=== PATIENT | male | born 1955 | race Two or more races ===

== ENCOUNTER 2021-06-30 06:34 | Inpatient (IN) | payer OTHER ==
[~2021-06-30] VITALS: Ht 182.9 cm; Wt 94.5 kg
[2021-06-30] MEDS ORDERED: SODIUM CHLORIDE 0.9% 1,000 ML IV ONE ×2 (06:45)
[2021-06-30 07:30] LABS: Basophils # (auto) 0.1 10 ^3/uL (0-0.2); Basophils % (auto) 0.4 % (0.0-2.0); Eosinophils # (auto) 0 10 ^3/uL (0-0.8); Eosinophils % (auto) 0.2 % (0.0-7.0); Hematocrit 31.8 % (41.0-53.0); Hemoglobin 10.8 g/dL (13.5-17.5); Lymphocytes % (auto) 15.9 % (10.0-50.0); Mean Corpuscular Hemoglobin 28.7 pg (28.0-32.0); Mean Corpuscular Hgb Conc. 33.9 g/dL (32.0-36.0); Mean Corpuscular Volume 84.7 fL (80.0-100.0); Monocytes # (auto) 0.7 10 ^3/uL (0-1.3); Monocytes % (auto) 5.5 % (0.0-12.0); Nucleated Red Blood Cells % 0.1 %; Red Blood Cells 3.75 10^6/uL (4.5-5.90); Red Cell Distribution Width 13.4 % (11.8-14.3); White Blood Cell 12.9 10^3/uL (4.4-10.8)
[2021-06-30 07:45] LABS: Potassium 4.7 mmol/L (3.5-5.1)
[2021-06-30 07:53] LABS: Albumin 3.1 g/dL (3.4-5.0); BUN/Creatinine Ratio 51.4; Bilirubin, Total 0.5 mg/dL (0.2-1.0); Calcium 7.9 mg/dL (8.5-10.1); Total Protein 5.4 g/dL (6.4-8.2)
[2021-06-30 08:05] LABS: INR 1.08 (0.9-1.15); Partial Thromboplastin Time 22.6 sec (23.6-33.0)
[2021-06-30 12:09] LABS: Urine Bacteria NONE SEEN /hpf (None Seen); Urine Blood Negative /uL (Negative); Urine Specific Gravity 1.024 (1.001-1.035); Urine WBC 2 /hpf (0 - 3)
[2021-06-30] MEDS ORDERED: PANTOPRAZOLE 40 MG/10 ML VIAL INJ IV SCH (15:00)
[2021-06-30] MEDS ORDERED: NITROGLYCERIN 0.4 MG SL TAB SL PRN ×2 (18:00→19:15)
[2021-06-30] MEDS ORDERED: MORPHINE SULFATE INJECTION 2 MG/ML SYRG IV PRN ×3 (18:00→19:15)
[2021-06-30] MEDS ORDERED: ATOR-47 PO (18:04)
[2021-06-30] MEDS ORDERED: LISI-275 PO (18:05)
[2021-06-30] MEDS ORDERED: ASPI-407 PO (18:05)
[2021-06-30] MEDS ORDERED: CYAN1TAB11 PO (18:06)
[2021-06-30] MEDS ORDERED: LABETALOL HCL 5 MG/ML 4ML SYRINGE IV ONE (18:15)
[2021-06-30] MEDS ORDERED: SODIUM CHLORIDE 0.9% 1,000 ML IV SCH (18:15)
[2021-06-30] MEDS ORDERED: ATORVASTATIN 20 MG TAB PO ONE (19:00)
[2021-06-30] MEDS ORDERED: LACTATED RINGER'S 1,000 ML IV ONE (19:00)
[2021-06-30] MEDS ORDERED: PANTOPRAZOLE 40 MG/10 ML VIAL INJ IV ONE (19:00)
[2021-06-30] MEDS ORDERED: METOPROLOL SUCCINATE XL 50 MG TAB PO ONE (19:00)
[2021-06-30] MEDS ORDERED: SUCRALFATE 1 GM/10 ML ORAL SUSP PO ONE (19:00)
[2021-06-30] MEDS: SODIUM CHLORIDE 0.9% 1,000 ML IV SCH (19:09)
[2021-06-30] MEDS ORDERED: HYDROcodone-ACET 5/325MG TAB PO PRN (19:15)
[2021-06-30] MEDS ORDERED: ALUM & MAG HYDROX-SIMETH LIQ(MAALOX) 30 ML PO PRN (19:15)
[2021-06-30] MEDS ORDERED: ISOSORBIDE MONONITRATE IR 20 MG TAB PO ONE (19:15)
[2021-06-30] MEDS ORDERED: ACETAMINOPHEN 325 MG TAB PO PRN (19:15)
[2021-06-30] MEDS ORDERED: ONDANSETRON HCL 4 MG/2 ML VIAL IV PRN (19:15)
[2021-06-30] MEDS ORDERED: LORazepam 0.5 MG TAB PO PRN (19:15)
[2021-06-30] MEDS: ATORVASTATIN 20 MG TAB PO SCH (20:21)
[2021-06-30] MEDS: SUCRALFATE 1 GM/10 ML ORAL SUSP PO SCH (20:21)
[2021-06-30 20:29] LABS: Amphetamine Screen, Urine NEGATIVE (NEGATIVE); Benzodiazephine Screen, Urine NEGATIVE (NEGATIVE); Cannabinoid Screen, Urine NEGATIVE (NEGATIVE); Cocaine Screen, Urine NEGATIVE (NEGATIVE); Opiate Scree,Urine NEGATIVE (NEGATIVE); Phencyclidine Screen, Urine NEGATIVE (NEGATIVE)
[2021-06-30 21:10] LABS: Cholesterol 65 mg/dL (< 200); HDL Cholesterol 27 mg/dL (40-59); LDL Cholesterol 35 mg/dL (< 100); Triglycerides 78 mg/dL (< 150)
[2021-06-30 21:18] LABS: Barbiturate Scree,Urine NEGATIVE (NEGATIVE)
[2021-06-30 21:24] LABS: Basophils # (auto) 0 10 ^3/uL (0-0.2); Basophils % (auto) 0.3 % (0.0-2.0); Eosinophils # (auto) 0 10 ^3/uL (0-0.8); Eosinophils % (auto) 0.3 % (0.0-7.0); Hematocrit 25.8 % (41.0-53.0); Hemoglobin 8.7 g/dL (13.5-17.5); Lymphocytes # (auto) 3.1 10 ^3/uL (0.4-5.4); Lymphocytes % (auto) 29.5 % (10.0-50.0); Mean Corpuscular Hemoglobin 28.3 pg (28.0-32.0); Mean Corpuscular Hgb Conc. 33.5 g/dL (32.0-36.0); Mean Corpuscular Volume 84.4 fL (80.0-100.0); Monocytes # (auto) 1.1 10 ^3/uL (0-1.3); Monocytes % (auto) 10.7 % (0.0-12.0); Neutrophils # (auto) 6.3 10 ^3/uL (1.6-8.6); Neutrophils % (auto) 59.2 % (37.0-80.0); Nucleated Red Blood Cells % 0.1 %; Red Blood Cells 3.06 10^6/uL (4.5-5.90); Red Cell Distribution Width 13.5 % (11.8-14.3); White Blood Cell 10.6 10^3/uL (4.4-10.8)
[2021-06-30 21:55] VITALS: BP 116/67
[2021-06-30 22:00] VITALS: BP 116/67
[2021-06-30] MEDS ORDERED: LABETALOL HCL 5 MG/ML 4ML SYRINGE IV PRN (22:00)
[2021-06-30] MEDS: metroNIDAZOLE 500MG/100ML 100 ML IV SCH (22:16)
[2021-07-01 00:27] LABS: Eosinophils # (auto) 0 10 ^3/uL (0-0.8); Lymphocytes # (auto) 3.3 10 ^3/uL (0.4-5.4); Mean Corpuscular Volume 84.3 fL (80.0-100.0); Neutrophils # (auto) 5.5 10 ^3/uL (1.6-8.6); White Blood Cell 9.7 10^3/uL (4.4-10.8)
[2021-07-01 00:29] LABS: Basophils # (auto) 0 10 ^3/uL (0-0.2); Basophils % (auto) 0.3 % (0.0-2.0); Eosinophils % (auto) 0.4 % (0.0-7.0); Hematocrit 23.9 % (41.0-53.0); Lymphocytes % (auto) 33.5 % (10.0-50.0); Mean Corpuscular Hemoglobin 28.3 pg (28.0-32.0); Mean Corpuscular Hgb Conc. 33.6 g/dL (32.0-36.0); Monocytes # (auto) 0.9 10 ^3/uL (0-1.3); Monocytes % (auto) 9.3 % (0.0-12.0); Neutrophils % (auto) 56.5 % (37.0-80.0); Red Blood Cells 2.84 10^6/uL (4.5-5.90); Red Cell Distribution Width 13.4 % (11.8-14.3)
[2021-07-01] MEDS: metroNIDAZOLE 500MG/100ML 100 ML IV SCH (06:16)
[2021-07-01] MEDS: SUCRALFATE 1 GM/10 ML ORAL SUSP PO SCH ×4 (06:39→20:14)
[2021-07-01 08:01] LABS: Basophils # (auto) 0 10 ^3/uL (0-0.2); Eosinophils # (auto) 0.1 10 ^3/uL (0-0.8); Hemoglobin 7.7 g/dL (13.5-17.5); Lymphocytes # (auto) 2.2 10 ^3/uL (0.4-5.4); Neutrophils # (auto) 5.7 10 ^3/uL (1.6-8.6); Nucleated Red Blood Cells % 0.1 %; White Blood Cell 8.7 10^3/uL (4.4-10.8)
[2021-07-01 08:02] LABS: Basophils % (auto) 0.4 % (0.0-2.0); Eosinophils % (auto) 0.6 % (0.0-7.0); Hematocrit 22.8 % (41.0-53.0); Lymphocytes % (auto) 25.8 % (10.0-50.0); Mean Corpuscular Hemoglobin 28.5 pg (28.0-32.0); Mean Corpuscular Hgb Conc. 33.8 g/dL (32.0-36.0); Mean Corpuscular Volume 84.3 fL (80.0-100.0); Monocytes # (auto) 0.6 10 ^3/uL (0-1.3); Monocytes % (auto) 7.4 % (0.0-12.0); Neutrophils % (auto) 65.8 % (37.0-80.0); Red Blood Cells 2.71 10^6/uL (4.5-5.90); Red Cell Distribution Width 13.5 % (11.8-14.3)
[2021-07-01] MEDS ORDERED: MIDAZOLAM HCL 5 MG/ML-1ML VIAL ONE (08:13)
[2021-07-01] MEDS ORDERED: diphenhdrAMINE HCL 50 MG/1 ML VL ONE (08:13)
[2021-07-01] MEDS ORDERED: LIDOCAINE VISCOUS 2% 15ML UD ONE (08:13)
[2021-07-01] MEDS ORDERED: fentaNYL CITRATE 100 MCG/2 ML VL ONE (08:14)
[2021-07-01] MEDS: cefTRIAXone 1GM/50ML D5W 50 ML IV SCH (08:18)
[2021-07-01 09:34] VITALS: BP 119/59
[2021-07-01] MEDS: DOCUSATE SOD 100 MG CAP PO SCH (10:00)
[2021-07-01] MEDS: ISOSORBIDE MONONITRATE IR 20 MG TAB PO SCH ×2 (10:00→20:31)
[2021-07-01] MEDS: METOPROLOL SUCCINATE XL 50 MG TAB PO SCH (10:00)
[2021-07-01] MEDS: SODIUM CHLORIDE 0.9% 1,000 ML IV SCH (10:11)
[2021-07-01] MEDS: PANTOPRAZOLE 40 MG/10 ML VIAL INJ IV SCH ×2 (10:37→20:14)
[2021-07-01 12:21] LABS: Basophils # (auto) 0 10 ^3/uL (0-0.2); Basophils % (auto) 0.5 % (0.0-2.0); Eosinophils # (auto) 0.1 10 ^3/uL (0-0.8); Hematocrit 23.6 % (41.0-53.0); Lymphocytes # (auto) 2.5 10 ^3/uL (0.4-5.4); Lymphocytes % (auto) 29.7 % (10.0-50.0); Mean Corpuscular Hgb Conc. 33.7 g/dL (32.0-36.0); Monocytes # (auto) 0.7 10 ^3/uL (0-1.3); Monocytes % (auto) 7.7 % (0.0-12.0); Neutrophils # (auto) 5.2 10 ^3/uL (1.6-8.6); Neutrophils % (auto) 61.1 % (37.0-80.0); Nucleated Red Blood Cells % 0.1 %; Red Blood Cells 2.75 10^6/uL (4.5-5.90); Red Cell Distribution Width 13.4 % (11.8-14.3); White Blood Cell 8.6 10^3/uL (4.4-10.8)
[2021-07-01 13:30] VITALS: BP 106/56
[2021-07-01 17:01] VITALS: BP 112/56
[2021-07-01] MEDS: ATORVASTATIN 20 MG TAB PO SCH (20:15)
[2021-07-01 22:00] VITALS: BP 125/56
[2021-07-01 22:23] LABS: Basophils # (auto) 0.1 10 ^3/uL (0-0.2); Basophils % (auto) 1.4 % (0.0-2.0); Eosinophils # (auto) 0.2 10 ^3/uL (0-0.8); Eosinophils % (auto) 2.2 % (0.0-7.0); Hematocrit 22.3 % (41.0-53.0); Hemoglobin 7.4 g/dL (13.5-17.5); Lymphocytes # (auto) 1.6 10 ^3/uL (0.4-5.4); Lymphocytes % (auto) 23.8 % (10.0-50.0); Mean Corpuscular Hemoglobin 28.3 pg (28.0-32.0); Mean Corpuscular Hgb Conc. 33.2 g/dL (32.0-36.0); Mean Corpuscular Volume 85.1 fL (80.0-100.0); Monocytes # (auto) 0.5 10 ^3/uL (0-1.3); Monocytes % (auto) 7.4 % (0.0-12.0); Neutrophils # (auto) 4.4 10 ^3/uL (1.6-8.6); Neutrophils % (auto) 65.2 % (37.0-80.0); Nucleated Red Blood Cells % 0.1 %; Red Blood Cells 2.62 10^6/uL (4.5-5.90); Red Cell Distribution Width 13.5 % (11.8-14.3); White Blood Cell 6.8 10^3/uL (4.4-10.8)
[2021-07-02 05:04] LABS: Basophils # (auto) 0 10 ^3/uL (0-0.2); Eosinophils # (auto) 0.2 10 ^3/uL (0-0.8); Hemoglobin 8.1 g/dL (13.5-17.5); Lymphocytes # (auto) 2.8 10 ^3/uL (0.4-5.4); Monocytes # (auto) 0.7 10 ^3/uL (0-1.3); Neutrophils # (auto) 5.8 10 ^3/uL (1.6-8.6); White Blood Cell 9.6 10^3/uL (4.4-10.8)
[2021-07-02 05:05] LABS: Basophils % (auto) 0.3 % (0.0-2.0); Eosinophils % (auto) 2.4 % (0.0-7.0); Hematocrit 23.9 % (41.0-53.0); Lymphocytes % (auto) 29.3 % (10.0-50.0); Mean Corpuscular Hemoglobin 28.7 pg (28.0-32.0); Mean Corpuscular Hgb Conc. 33.8 g/dL (32.0-36.0); Mean Corpuscular Volume 84.9 fL (80.0-100.0); Monocytes % (auto) 7.7 % (0.0-12.0); Neutrophils % (auto) 60.3 % (37.0-80.0); Nucleated Red Blood Cells % 0.1 %; Red Blood Cells 2.81 10^6/uL (4.5-5.90); Red Cell Distribution Width 13.6 % (11.8-14.3)
[2021-07-02 05:20] LABS: BUN/Creatinine Ratio 16.5; Calcium 7.7 mg/dL (8.5-10.1); Potassium 3.8 mmol/L (3.5-5.1)
[2021-07-02 05:25] VITALS: BP 128/56
[2021-07-02] MEDS: SUCRALFATE 1 GM/10 ML ORAL SUSP PO SCH ×3 (05:32→16:32)
[2021-07-02 09:00] VITALS: BP 146/80
[2021-07-02] MEDS: cefTRIAXone 1GM/50ML D5W 50 ML IV SCH (09:09)
[2021-07-02] MEDS: PANTOPRAZOLE 40 MG/10 ML VIAL INJ IV SCH (09:10)
[2021-07-02] MEDS: ISOSORBIDE MONONITRATE IR 20 MG TAB PO SCH (09:14)
[2021-07-02] MEDS: DOCUSATE SOD 100 MG CAP PO SCH (09:14)
[2021-07-02] MEDS: METOPROLOL SUCCINATE XL 50 MG TAB PO SCH (09:14)
[2021-07-02] MEDS ORDERED: PANT40TA2 PO (12:03)
[2021-07-02] MEDS ORDERED: SUCR1TAB22 PO (12:03)
[2021-07-02 12:48] VITALS: BP 146/80
[2021-07-02 13:00] VITALS: BP 122/53
[2021-07-02 16:41] VITALS: BP 126/74
== END 2021-07-02 16:54 | disposition home or self-care (01) | DRG 368 ==
LOC: EDBD 06:34 → ER 06:34 → TELE 19:09 → TELE-WESTW 21:50
PROVIDERS: ADMIT Hospitalist; ATTEND Family Medicine
PROC: 0DB68ZX Excision of Stomach, Via Natural or Artificial Opening Endoscopic, Diagnostic (ICD-10-PCS; 2021-07-01)
PROC: 0DB48ZX Excision of Esophagogastric Junction, Via Natural or Artificial Opening Endoscopic, Diagnostic (ICD-10-PCS; principal; 2021-07-01 12:23)
DX: K20.91 Esophagitis, unspecified with bleeding (principal); I21.A1 Myocardial infarction type 2; K25.4 Chronic or unspecified gastric ulcer with hemorrhage; K29.81 Duodenitis with bleeding; K29.71 Gastritis, unspecified, with bleeding; I16.1 Hypertensive emergency; R55 Syncope and collapse; I11.9 Hypertensive heart disease without heart failure; I25.5 Ischemic cardiomyopathy; E66.9 Obesity, unspecified; I25.10 Atherosclerotic heart disease of native coronary artery without angina pectoris; R73.9 Hyperglycemia, unspecified; E78.5 Hyperlipidemia, unspecified; K44.9 Diaphragmatic hernia without obstruction or gangrene; R73.03 Prediabetes; D64.9 Anemia, unspecified; Z20.822 Contact with and (suspected) exposure to COVID-19; M47.815 Spondylosis without myelopathy or radiculopathy, thoracolumbar region; N28.1 Cyst of kidney, acquired; Z79.82 Long term (current) use of aspirin; Z79.899 Other long term (current) drug therapy; Z86.73 Personal history of transient ischemic attack (TIA), and cerebral infarction without residual deficits; Z98.61 Coronary angioplasty status; Z68.27 Body mass index [BMI] 27.0-27.9, adult
CPT/HCPCS: 36415; 43239; 70450; 74176; 80048; 80053; 80061; 80307; 81001; 83036; 84484; 85025; 85610; 85730; 86850; 86900; 86901; 87040; 87086; 87426; 93005; 93306; 93886; 96361; 96365; C9113; G0378; J0696; J2250; J3490

== ENCOUNTER → 2022-05-29 | Emergency (ER) | payer OTHER ==
[~2022-05-29] VITALS: Ht 177.8 cm; Wt 95.0 kg
[~2022-05-29] MED LIST: ATOR-47 PO; AZITHROMYCIN 500MG/ 250ML 250 ML IV ONE; CYAN1TAB11 PO; LISI-275 PO; ONDANSETRON HCL 4 MG/2 ML VIAL IV ONE; PANT40TA2 PO; SODIUM CHLORIDE 0.9% 500 ML IV ONE; SUCR1TAB22 PO; cefTRIAXone 1GM/50ML D5W 50 ML IV ONE
[2022-05-29 04:04] LABS: Basophils # (auto) 0 10 ^3/uL (0-0.2); Basophils % (auto) 0.5 % (0.0-2.0); Eosinophils # (auto) 0.2 10 ^3/uL (0-0.8); Lymphocytes # (auto) 0.5 10 ^3/uL (0.4-5.4); Mean Corpuscular Hemoglobin 25.8 pg (28.0-32.0); Red Cell Distribution Width 16.9 % (11.8-14.3); White Blood Cell 9.3 10^3/uL (4.4-10.8)
[2022-05-29 04:07] LABS: Eosinophils % (auto) 2.4 % (0.0-7.0); Hematocrit 32.9 % (41.0-53.0); Hemoglobin 11.1 g/dL (13.5-17.5); Lymphocytes % (auto) 5.8 % (10.0-50.0); Mean Corpuscular Hgb Conc. 33.6 g/dL (32.0-36.0); Mean Corpuscular Volume 76.7 fL (80.0-100.0); Monocytes % (auto) 11.3 % (0.0-12.0); Neutrophils # (auto) 7.4 10 ^3/uL (1.6-8.6); Nucleated Red Blood Cells % 0.1 %; Red Blood Cells 4.29 10^6/uL (4.5-5.90)
[2022-05-29 04:21] LABS: Albumin 2.2 g/dL (3.4-5.0); Calcium 8.6 mg/dL (8.5-10.1); Potassium 4.5 mmol/L (3.5-5.1)
[2022-05-29 04:30] LABS: BUN/Creatinine Ratio 27.8; Bilirubin, Total 0.6 mg/dL (0.2-1.0); Total Protein 5.4 g/dL (6.4-8.2)
[2022-05-29 14:23] VITALS: BP 119/45
== END | disposition hospice, inpatient (51) ==
LOC: EDUNIT# 02:29 → ER 02:39 → EDSEX 02:39 → EDBD 02:39
DX: J18.9 Pneumonia, unspecified organism (principal); R09.02 Hypoxemia; R53.1 Weakness; I25.10 Atherosclerotic heart disease of native coronary artery without angina pectoris; I10 Essential (primary) hypertension; Z20.822 Contact with and (suspected) exposure to COVID-19; Z87.891 Personal history of nicotine dependence; Z98.890 Other specified postprocedural states
CPT/HCPCS: 36415; 71045; 74176; 80053; 83605; 83690; 83880; 84484; 85025; 87040; 87426; 93005; 96361; 96365; 96366; 96368; 96375; 99285; J0456; J0696; J2405; J7030; 87077; 87186